=== PATIENT | male | born 1950 | race Two or more races ===

== ENCOUNTER → 2024-04-26 13:32 | Outpatient (REF) | payer OTHER, SELFPAY | LOC: MRI 3T 13:32 | PROVIDERS: ATTENDING PHYSICIAN Physical Medicine & Rehabilitation; FAMILY PHYSICIAN Family Medicine | DX: R41.89 Other symptoms and signs involving cognitive functions and awareness (principal) | CPT/HCPCS: 70553; A9575 ==

== ENCOUNTER 2025-06-30 17:18 | Emergency (ER) | payer OTHER, SELFPAY ==
[2025-06-30 17:20] VITALS: BP 149/76; BMI 38.3
--- NOTE | 2025-06-30 17:59 | ED.GENMED ---
History of Present Illness
General
Chief Complaint: Skin Problem
Source: patient
Exam Limitations: none
Time Seen by Provider: 06/30/25 17:43
History of Present Illness
History of Present Illness:
74yoM with a history of hypertension, Parkinson's disease, peripheral neuropathy, and chronic pain presenting via EMS for evaluation a right leg wound. Patient is a resident at [facility]. He is unable to see his legs due to contractures.
A staff member noticed a blister to his right anterior lower leg about 2 to 3 days ago. The staff has been applying mupirocin ointment and changing dressings. The blister has been enlarging over the past 24 hours and popped earlier today. He
called his PCP who told him to go to the ED for evaluation due to concern for possible cellulitis. Patient reports having some pain in the area initially but this has improved. He denies any fevers or chills. No reported trauma to the area.
Phy Exam
General Physical Exam
General Presentation: well appearing and no apparent distress
General Skin: warm and dry
General Habitus: normal
General Mental: alert
ENT Exam
ENT Exam: normocephalic
Neurological Exam
Neurological Exam: alert
[place] Coma Scale
Eye Opening: Spontaneous
Verbal Response: Oriented
Motor Response: Obeys Commands
GCS Total Score: 15
Musculoskeletal Exam
Musculoskeletal Exam: other (Chronic bilateral leg contractures noted)
Skin Exam
Skin Exam: other (Large wound noted to R anterior lower leg consistent with an open blister. Surrounding erythema and warmth noted. No crepitus or pain out of proportion. 2+ DP pulse.)
Psychiatric Exam
Psychiatric Exam: normal mood/affect
Course
Orders/Labs/Results
Orders:
Orders
06/30/25 17:57
CR Leg Tibia/fibula Right 2 Vw Urgent
Comment:
Reason For Exam: wound
06/30/25 18:09
Complete Blood Count/With Diff Urgent
Comprehensive Metabolic Panel Urgent
06/30/25 19:42
CeFAZolin 2 GRAM [Ancef] 2 grams in 10 ml IV NOW
Abnormal Lab Results
06/30/25
18:09
MCH 26.2 L pg
(27.0-31.0)
MCHC 32.6 L g/dL
(33.0-37.0)
RDW 14.8 H %
(11.5-14.5)
Abs Immat Gran (auto) 0.1 H 10^3/uL
(0-0.05)
Absolute Neuts (auto) 7.6 H 10^3/uL
(1.4-6.5)
Absolute Monos (auto) 0.9 H 10^3/uL
(0.1-0.6)
Immature Gran % 0.7 H %
(0-0.5)
Lymphocytes % 11.7 L %
(20.5-51.1)
BUN 21 H mg/dl
(9-20)
Glucose 111 H mg/dl
(70-99)
06/30/25 18:09
06/30/25 18:09
Vital Signs
Initial and Last Documented VS:
Initial Vital Signs
Temp Pulse Resp BP Pulse Ox
97.6 F 74 14 149/76 92
06/30/25 17:20 06/30/25 17:20 06/30/25 17:20 06/30/25 17:20 06/30/25 17:20
Last Documented Vital Signs
Temp Pulse Resp BP Pulse Ox
97.6 F 74 14 149/76 92
06/30/25 17:20 06/30/25 17:20 06/30/25 17:20 06/30/25 17:20 06/30/25 18:02
MDM/Problems Addressed
Differential Diagnosis Includes:
74yoM here with a popped blister to his R leg. No f/c. Vital signs stable. He is well-appearing in no distress. There is a large open wound noted on exam with surrounding erythema and warmth. No purulent discharge. No fluctuance, crepitus, or
pain out of proportion. RLE is neurovascularly intact. Differential diagnosis includes: Blister, cellulitis, no evidence of NSTI
Initial ED plan: Check basic labs and right tib-fib x-rays.
*Pulse Oximetry
SaO2: 92
Oxygen Mode of Delivery: Room air
Patient hypoxic: no
*Critical Care Note
Total Time (30-74mins, 75-104mins- exclusive of procedures): Not Applicable
Update Note
Update Note:
Labs unremarkable including normal white count. X-rays show soft tissue swelling consistent with cellulitis. No evidence of osteomyelitis or soft tissue gas noted. Patient is not meeting any criteria for sepsis. Wound dressed by nursing staff.
Dose of IV Ancef given in ED and he was started on a course of Keflex to cover for cellulitis. There is a wound care nurse at [facility] that is able to see patient. He was also advised to f/u with his PCP. Strict ED return precuations reviewed and
he was discharged in stable condition.
ED Attending Note
-
Portions of this chart may have been created with voice recognition software.� Occasional wrong word or��sound alike� substitutions may have occurred due to the inherent limitations of voice recognition software.
Discharge Plan
Departure
Patient Disposition: Home (Routine Discharge)
Date of Disposition: 06/30/25
Time of Disposition: 19:43
Patient with high blood pressure during this ER visit?: Yes
Discharge Problem:
Cellulitis of right lower leg, Open wound of right lower leg
Instructions: Cellulitis (Skin Infection), Adult (DC)
Prescriptions:
New
cephalexin 500 mg capsule
500 mg PO Q6H 7 Days Qty: 28 0RF
Referrals:
Romel Rai DO [Family Provider, Family Practice]
Activity Restrictions/Additional Instructions:
Take antibiotics as prescribed. Wound dressing should be changed daily.
Please follow-up with your family doctor in the next 3 to 4 days. You should also be evaluated by the wound care nurse.
Return to the ER with any worsening symptoms including fevers, chills, or if there is no improvement in the next 72 hours.
Interventions
Interventions:
*Risk Screen - Suicide Last Done: 06/30/25 21:19
*General Assessment Last Done: 06/30/25 17:20
*Neglect/Abuse Screening Last Done: 06/30/25 17:20
*ED- Fall Risk Assessment Last Done: 06/30/25 17:20
*ED COVID-19 Vaccine History Last Done: 06/30/25 17:20
*ED Influenza Vaccine History Last Done: 06/30/25 17:20
*Nursing Disposition Last Done: 06/30/25 21:19
ED-Skin Assessment Last Done: 06/30/25 21:19
Discharge Date and Time
Discharge Date/Time: 06/30/25 21:21
Print Language: ROMANIAN
[2025-06-30 18:21] LABS: Hematocrit 42.7 % (39.0-52.0); Hemoglobin 13.9 g/dL (13.0-18.0); Mean Corp Hgb Conc. 32.6 g/dL (33.0-37.0); Mean Corpuscular Volume 80.4 fL (80.0-94.0); Nucleated Red Blood Cells % 0 % (-); Platelet Count 313 10^3/uL (130-400); Red Cell Dist. Width 14.8 % (11.5-14.5)
[2025-06-30 18:30] LABS: ALT (SGPT) 18 U/L (0-50); AST (SGOT) 22 U/L (17-59); Albumin 4.4 g/dl (3.5-5.0); Alkaline Phosphatase 95 U/L (38-126); Blood Urea Nitrogen 21 mg/dl (9-20); Calcium 9.3 mg/dl (8.4-10.2); Carbon Dioxide 24 mmol/L (22-30); Chloride 106 mmol/L (98-107); Estimated Creatinine Clearance 67 ml/min; Glucose 111 mg/dl (70-99); Potassium 4.6 mmol/L (3.5-5.1); Sodium 136 mmol/L (135-145); Total Protein 8.0 g/dl (6.3-8.2); eGFR > 60.00
[2025-06-30] MEDS: ANCEF 10 IV (20:33)
== END 2025-06-30 21:21 | disposition home or self-care (01) ==
LOC: EMR 17:18
PROVIDERS: Physician Assistant; EMERGENCY PHYSICIAN Emergency Medicine; FAMILY PHYSICIAN Family Medicine
DX: L03.115 Cellulitis of right lower limb (principal); S81.801A Unspecified open wound, right lower leg, initial encounter; X58.XXXA Exposure to other specified factors, initial encounter; I10 Essential (primary) hypertension; G20.A1 Parkinson's disease without dyskinesia, without mention of fluctuations; G62.9 Polyneuropathy, unspecified
CPT/HCPCS: 96374; 99284; 73590; 80053; 85025